=== PATIENT | male | born 1985 | race Caucasian/White ===

== ENCOUNTER 2016-06-30 13:37 | Emergency (ER) | payer MEDICARE, MEDICAID ==
[~2016-06-30] VITALS: Ht 172.7 cm; Wt 99.8 kg
[~2016-06-30 13:37] MED LIST: BACTRIM DS 8001 TA1 PO; BACTRIM DS 8001 TAB PO; BACTROBAN2% TP; CEPHALEXIN500 M1 PO; CEPHALEXIN500 MG PO; ETODOLAC200 MG PO; FLUOXETINE20 M2 PO; INDERAL 20MG. T20 MG PO; METHADONE HCL5 MG PO; PROPRANOLOL HCL10 MG PO; PROZAC40 MG PO; ROBAXIN-750750 MG PO; SEPTRA DS 800 M1 TAB PO; TORADOL10 MG PO
[2016-06-30 14:00] VITALS: BP 131/88
--- OUTSIDE RECORDS SUMMARY | 2016-07-01 22:53 | External Medical Summary Rpt ---
Author Author KWASI Bernal, KWASI Bernal Organization [employer] Address Unknown Phone Unavailable
--- OUTSIDE RECORDS SUMMARY | 2016-07-01 22:53 | External Medical Summary Rpt ---
Author Author , Organization [employer] Address Unknown Phone Unavailable Support Name Relationship Address Phone SURAJ Next Of Kin [address] [place] [phone] Purpose Continuity of Care Document - 09-13-2012 through 2016 Problems Code Diagnosis DOS Provider Status M54.2 CERVICALGIA R94.5 ABNORMAL RESULTS OF LIVER FUNCTION STUDIES S39.012A STRAIN OF MUSCLE, FASCIA AND TENDON OF LOWER BACK, INIT Allergies, Adverse Reactions, Alerts Type Allergy to substance Adverse Reaction to Substance Substance Reaction Severity NO KNOWN ALLERGIES Unknown Unknown Medications Na ND Rx Da Fi Fi Am Da Di Ph RX Ph St me C No te ll ll ou ys ag ar # ys at rm s nt no ma ic us Or Da si cy ia de te s n re d Sa 63 01 0 No li 80 -0 ne 70 9- Lo 10 20 ng Fl 07 14 er us 5 h Ac 10 ti ML ve Sy ri ng e KE 00 01 0 No TO 40 -0 RO 93 9- Lo LA 79 20 ng C 50 14 er 30 1 Ac MG ti /M ve L AL WV 00 01 0 No OM 64 -0 ET 11 9- Lo NAZARIO 49 20 ng ZI 53 14 er NE 5 Ac 25 ti ve MG /M L AM PU L SO 00 01 0 No DI 40 -0 UM 97 9- Lo 98 20 ng CH 42 14 er LO 0 RI Ac DE ti ve 0. 9% SO CORDELL TI ON WING 51 07 0 No LF 07 -1 AM 90 3- Lo ET 12 20 ng HO 82 13 er XA 0 ZO Ac LE ti -T ve MP DS TA BL ET Vital Signs 03-12-2013 05:57 Name Value Interpretat Reference Comment ion Range BP 79 mm[Hg] Diastolic BP Systolic 124 mm[Hg] Heart 85 /min Rate/Pulse O2% 93 % Respiratory 20 /min Rate 03-12-2013 03:58 Name Value Interpretat Reference Comment ion Range BP 83 mm[Hg] Diastolic BP Systolic 144 mm[Hg] Heart 62 /min Rate/Pulse O2% 95 % Respiratory 16 /min Rate 09-13-2012 21:43 Name Value Interpretat Reference Comment ion Range Body 98.3 [degF] Temperature BP 92 mm[Hg] Diastolic BP Systolic 131 mm[Hg] Heart 70 /min Rate/Pulse O2% 97 % Respiratory 20 /min Rate 09-13-2012 21:39 Name Value Interpretat Reference Comment ion Range Body 98.3 [degF] Temperature BP 92 mm[Hg] Diastolic BP Systolic 131 mm[Hg] Heart 70 /min Rate/Pulse O2% 97 % Respiratory 20 /min Rate Results Labs Lab Lab Date Result Refere Interp Status Commen Order Detail nces retati t Range on COMPREHENSIVE METABOLIC PANEL (03-12-2013 03:45) Glucose 163 74-106 complet 014 mg/dL ed Bld-mCn 03:45 c BUN 17 7-18 complet Bld-mCn 014 mg/dL ed c 03:45 Creat 1.2 0.8-1.3 complet SerPl-m 014 mg/dL ed Cnc 03:45 Creat 128 50-200 complet Cl 014 ML/MIN ed predict 03:45 ed SerPl C-G-vRa te GFR/BSA 72 Greater complet .pred 014 ML/MIN than ed SerPl 03:45 60 Schwart z-vRate Sodium 141 136-145 complet SerPl-s 014 mmoL/L ed Cnc 03:45 Potassi 4.2 3.5-5.1 complet um 014 mmoL/L ed SerPl-s 03:45 Cnc Chlorid 101 98-107 complet e 014 mmoL/L ed SerPl-s 03:45 Cnc CO2 30 21.0-32 complet SerPl-s 014 mmoL/L .0 ed Cnc 03:45 Calcium 9.3 8.5-10. complet 014 mg/dL 1 ed SerPl-m 03:45 Cnc Prot 8.0 6.4-8.2 complet SerPl-m 014 gm/dL ed Cnc 03:45 Albumin 4.0 3.4-5.0 complet 014 gm/dL ed SerPl-m 03:45 Cnc Globuli 4.0 1.3-3.2 complet n 014 gm/dL ed Ser-mCn 03:45 c Albumin 1.0 UNK 1.1-1.8 complet /Glob 014 ed SerPl-m 03:45 Rto Bilirub 0.4 0.2-1.0 complet 014 mg/dL ed SerPl-m 03:45 Cnc AST 25 U/L 15-37 complet SerPl-c 014 ed Cnc 03:45 ALT 57 U/L 30-65 complet SerPl-c 014 ed Cnc 03:45 ALP 127 U/L 50-136 complet SerPl-c 014 ed Cnc 03:45 Amylase SerPl-cCnc (03-12-2013 03:45) Amylase 24 U/L 25-115 complet 014 ed SerPl-c 03:45 Cnc LIPASE (03-12-2013 03:45) LIPASE 79 U/L 73-393 complet 014 ed 03:45 CBC with AUTO DIFF (03-12-2013 03:45) WBC # 03-12- 10.8 4.8-10. complet Bld 014 K/MM3 8 ed Auto 03:45 RBC # 4.70 4.6-6.2 complet Bld 014 M/mm3 ed Auto 03:45 Hgb 13.6 14.1-18 complet Bld-mCn 014 g/dL .0 ed c 03:45 Hct Fr 41.0 % 42.0-52 complet Bld 014 .0 ed 03:45 MCV RBC 87.3 fl 82.2-97 complet 014 .8 ed 03:45 MCH RBC 29.0 pg 27-31.2 complet Qn 014 ed Auto 03:45 MEAN 33.2 31.8-35 complet CORPUSC 014 g/dl .4 ed ULAR 03:45 HGB CONC RDW RBC 14.1 % 11.5-17 complet Auto 014 .5 ed 03:45 Platele 340 142-424 complet t Bld 014 K/mm3 ed Ql 03:45 Manual MEAN 6.9 fl 7.4-10. complet PLATELE 014 4 ed T 03:45 VOLUME Granulo 68.1 % 37.0-80 complet cytes 014 .0 ed Fr Bld 03:45 Auto LYMPH % 25.3 % 10-50 complet 014 ed 03:45 Monocyt 5.2 % 1.7-9.3 complet es Fr 014 ed Bld 03:45 Auto Eosinop 2 0.9 % 0.1-12. complet hil Fr 014 0 ed Bld 03:45 Auto Basophi 0.5 % 0.1-2.0 complet ls Fr 014 ed Bld 03:45 Auto Granulo 7.3 1.3-8.0 complet cytes # 014 K/mm3 ed Bld 03:45 Auto Lymphoc 2.7 0.7-4.5 complet ytes Fr 014 K/mm3 ed Bld 03:45 Auto Monocyt 0.6 0.1-1.0 complet es # 014 K/mm3 ed Bld 03:45 Auto Eosinop 0.1 0.0-0.4 complet hil # 014 K/mm3 ed Bld 03:45 Auto Basophi 2 0.1 0-0.2 complet ls # 014 K/MM3 ed Bld 03:45 Auto URINALYSIS/COMPLETE (03-12-2013 03:45) URINE YELLOW YELLOW complet COLOR 014 ed 03:45 URINE CLOUDY CLEAR complet APPEARA 014 ed NCE 03:45 URINE NEGATIV NEG complet GLUCOSE 014 E ed - 03:45 DIPSTIC K URINE NEGATIV NEG complet BILIRUB 014 E ed IN - 03:45 DIPSTIC K URINE NEGATIV NEG complet KETONE 014 E mg/dL ed 03:45 URINE 1.020 1.005-1 complet SPECIFI 014 UNK .030 ed C 03:45 GRAVITY URINE 3+ NEG complet BLOOD 014 ed 03:45 URINE 6.5 UNK 5.0-8.5 complet PH 014 ed 03:45 URINE NEGATIV NEG complet PROTEIN 014 E mg/dL ed - 03:45 DIPSTIC K URINE 0.2 NEG complet UROBILI 014 E.U./dL ed NOGEN - 03:45 DIPSTIC K URINE NEGATIV NEG complet NITRATE 014 E ed - 03:45 DIPSTIC K URINE NEGATIV NEG complet LEUK 014 E ed ESTERAS 03:45 E URINE TNTC 0 complet RBC 014 rbc/hpf ed 03:45 URINE OCC O complet WBC 014 wbc/hpf ed 03:45 URINE OCC OCC complet SQUAMOU 014 #/hpf ed S CELLS 03:45 URINE 2+ O complet BACTERI 014 ed A 03:45 Encounters Encounter Start End Date Code Location Performer Type Date Emergency KWADWO Weiss MD (ER) 4 03:27 4 05:58 [facility] Emergency KWADWO Weiss MD (ER) 3 20:14 3 21:44 [facility]
--- OUTSIDE RECORDS SUMMARY | 2016-07-01 22:53 | External Medical Summary Rpt ---
Author Author , Organization [employer] Address Unknown Phone Unavailable Support Name Relationship Address Phone SURAJ Next Of Kin [address] [place] [phone] Purpose Continuity of Care Document - 09-13-2012 [...] Ac MG ti /M ve L [place] 00 01 0 No OM 64 -0 [...] Weiss MD (ER) 4 03:27 4 05:58 [facility] KWADWO Weiss MD (ER) 3 20:14 3 21:44 [facility]
--- OUTSIDE RECORDS SUMMARY | 2016-07-01 22:53 | External Medical Summary Rpt ---
Author Author , Organization [employer] Address Unknown Phone Unavailable Purpose Continuity of Care Document - through 2016
--- OUTSIDE RECORDS SUMMARY | 2016-07-01 22:53 | External Medical Summary Rpt ---
Demographics Preferred Language Maori Marital Status Unknown Hoahaoism Affiliation Unknown Race Unknown Ethnic Group Unknown Author Author , Organization [employer] Address Unknown Phone Unavailable Purpose Continuity of Care Document - through 2016 Immunization No patient found.
--- OUTSIDE RECORDS SUMMARY | 2016-07-01 22:53 | External Medical Summary Rpt ---
Demographics Preferred Language Spanish Marital Status Unknown Samaritan Affiliation Unknown Race Unknown Ethnic Group Unknown Author Author , Organization [employer] Address Unknown Phone Unavailable Purpose Continuity of Care Document - through 2016 Immunization No patient found.
--- OUTSIDE RECORDS SUMMARY | 2016-07-01 22:54 | External Medical Summary Rpt ---
Demographics Preferred Language Welsh Marital Status Unknown Christianity Affiliation Unknown Race Unknown Ethnic Group Unknown Author Author , Organization [employer] Address Unknown Phone Unavailable Purpose Continuity of Care Document - through 2016 Immunization No patient found.
--- OUTSIDE RECORDS SUMMARY | 2016-07-01 22:54 | External Medical Summary Rpt ---
Demographics Preferred Language German Marital Status Unknown Confucianist Affiliation Unknown Race Unknown Ethnic Group Unknown Author Author , Organization [employer] Address Unknown Phone Unavailable Purpose Continuity of Care Document - through 2016 Immunization No patient found.
--- OUTSIDE RECORDS SUMMARY | 2016-07-01 22:54 | External Medical Summary Rpt ---
Author Author , Organization [employer] Address Unknown Phone Unavailable Support Name Relationship Address Phone SURAJ Next Of Kin [address] +[address] [place] [phone] Purpose Continuity of Care Document - 09-13-2012 [...] Ac MG ti /M ve L [place] 00 01 0 No OM 64 -0 [...] Weiss MD (ER) 4 03:27 4 05:58 [facility] Emergency KWADWO Weiss MD (ER) 3 20:14 3 21:44 [facility]
--- OUTSIDE RECORDS SUMMARY | 2016-07-01 22:54 | External Medical Summary Rpt ---
Author Author , Organization [employer] Address Unknown Phone Unavailable Support Name Relationship Address Phone SURAJ Next Of Kin [address] [place] [phone] Purpose Continuity of Care Document - 09-13-2012 [...] Ac MG ti /M ve L [place] 00 01 0 No OM 64 -0 [...] Weiss MD (ER) 4 03:27 4 05:58 [facility] Emergency KWADWO Weiss MD (ER) 3 20:14 3 21:44 [facility]
== END 2016-06-30 14:02 | disposition home or self-care (01) ==
LOC: UTC 13:37
DX: Z23 Encounter for immunization (principal)

== ENCOUNTER 2017-02-03 15:12 | Emergency (ER) | payer MEDICARE, MEDICAID ==
[~2017-02-03] VITALS: Ht 172.7 cm; Wt 102.1 kg
--- OUTSIDE RECORDS SUMMARY | 2017-02-03 15:40 | External Medical Summary Rpt | CCD ---
Author Author , KWASI VILLALPANDO Address Unknown Phone [email or web address] Support Name Relationship Address Phone SURAJ, Next Of Kin Eliecer LOPEZ +[address] [place] [phone] Purpose Continuity of Care Document - 09-13-2012 through 2016 Problems Code Diagnosis DOS Provider Status R74.8 Abnormal 09-12-2016 levels of other serum enzymes E78.5 Hyperlipide vale, unspecified F41.9 Anxiety disorder, unspecified F42.9 Obsessive-c ompulsive disorder, unspecified M48.06 Spinal stenosis, lumbar region M51.26 Other interverteb ral disc displacemen t, lumbar region M51.36 Other interverteb ral disc degeneratio n, lumbar region M54.2 CERVICALGIA R03.0 Elevated blood-press ure reading, without diagnosis of hypertensio n R73.09 Other abnormal glucose R94.5 ABNORMAL RESULTS OF LIVER FUNCTION STUDIES S39.012A STRAIN OF MUSCLE, FASCIA AND TENDON OF LOWER BACK, INIT Z00.00 Encounter for general adult medical examination without abnormal findings Z13.0 Encounter for screening for diseases of the blood and blood-formi ng organs and certain disorders involving the immune mechanism Z13.220 Encounter for screening for lipoid disorders Z13.228 Encounter for screening for other metabolic disorders Z13.29 Encounter for screening for other suspected endocrine disorder Allergies, Adverse Reactions, Alerts Type Allergy to [...] Ac MG ti /M ve L [place] 00 01 0 No OM 64 -0 [...] K/MM3 8 ed Auto 03:45 RBC # 03-12- 4.70 4.6-6.2 complet Bld 014 M/mm3 ed Auto 03:45 Hgb 03-12-2 13.6 14.1-18 complet Bld-mCn 014 g/dL .0 ed c 03:45 Hct Fr 2 41.0 % 42.0-52 complet Bld 014 .0 ed 03:45 MCV RBC 87.3 fl 82.2-97 complet 014 .8 ed 03:45 MCH RBC 29.0 pg 27-31.2 complet Qn 014 ed Auto 03:45 MEAN 33.2 31.8-35 complet CORPUSC 014 g/dl .4 ed ULAR 03:45 HGB CONC RDW RBC 14.1 % 11.5-17 complet Auto 014 .5 ed 03:45 Platele 03-12-2 340 142-424 complet t Bld 014 K/mm3 ed Ql 03:45 Manual MEAN 6.9 fl 7.4-10. complet PLATELE 014 4 ed T 03:45 VOLUME Granulo 03-12-2 68.1 % 37.0-80 complet cytes 014 .0 ed Fr Bld 03:45 Auto LYMPH % 03-12-2 25.3 % 10-50 complet 014 ed 03:45 Monocyt 03-12-2 5.2 % 1.7-9.3 complet es Fr 014 ed Bld 03:45 Auto Eosinop 09-2 0.9 % 0.1-12. complet hil Fr 014 0 ed Bld 03:45 Auto Basophi -09-2 0.5 % 0.1-2.0 complet ls Fr 014 ed Bld 03:45 Auto Granulo -09-2 7.3 1.3-8.0 complet cytes # 014 K/mm3 ed Bld 03:45 Auto Lymphoc 09-2 2.7 0.7-4.5 complet ytes Fr 014 K/mm3 ed Bld 03:45 Auto Monocyt -09-2 0.6 0.1-1.0 complet es # 014 K/mm3 ed Bld 03:45 Auto Eosinop -09-2 0.1 0.0-0.4 complet hil # 014 K/mm3 ed Bld 03:45 Auto Basophi 09-2 0.1 0-0.2 complet ls # 014 K/MM3 [...] Weiss MD (ER) 4 03:27 4 05:58 [facility] Emergency KWADWO Weiss MD (ER) 3 20:14 3 21:44 [facility]
--- OUTSIDE RECORDS SUMMARY | 2017-02-03 15:40 | External Medical Summary Rpt | CCD ---
Author Author KWASI Address Unknown Phone [email or web address] Purpose Continuity of Care Document - through 2016
--- OUTSIDE RECORDS SUMMARY | 2017-02-03 15:40 | External Medical Summary Rpt | CCD ---
Demographics Preferred Language Lithuanian Marital Status Unknown Zoroastrianism Affiliation Unknown Race Unknown Ethnic Group Unknown Author Author , KWASI VILLALPANDO Address Unknown Phone Immunization No patient found.
--- OUTSIDE RECORDS SUMMARY | 2017-02-03 15:40 | External Medical Summary Rpt | CCD ---
Demographics Preferred Language Yakut Marital Status Unknown Rastafari Affiliation Unknown Race Unknown Ethnic Group Unknown Author Author , KWASI VILLALPANDO Address Unknown Phone Immunization No patient found.
--- OUTSIDE RECORDS SUMMARY | 2017-02-03 15:40 | External Medical Summary Rpt ---
Author Author KWASI Bernal, [employer] Organization [employer] Address Unknown Phone Unavailable Results US RIGHT UPPER QUADRANT Observa Value Referen Units Interpr Notes Date tion ce etation Range \.br\CT No No No No Sep OCEDURE informa informa informa informa 2017 : RIGHT tion in tion in tion in tion in 10:16 UPPER source source source source AM QUADRAN data data data data T ULTRASO UND, 11/29/19 17 10:16 AM\.br\ \.br\IN DICATIO NS: Abdomin al pain.\. br\\.br \FINDIN GS: Right upper quadran t ultraso und.\.b r\\.br\ The gallbla dder is normal in appeara nce. There is no wall thicken ing,\.b r\stone s, or\.br\ pericho lecysti c fluid. Negativ e sonogra phic Rainey' s sign.\. br\\.br \There is probabl e diffuse hepatic steatos is. No focal hepatic lesions ..\.br\ There is\.br\ no intra or extrahe patic biliary dilatat ion.\.b r\\.br\ The common duct measure s 3 mm.\.br \\.br\L imited views of the pancrea s are unremar kable. The right kidney shows no\.br\ hydrone phrosis and measure s 11.1 cm in length. .\.br\\ .br\IMP RESSION :\.br\P robable hepatic steatos is. Right upper quadran t ultraso und is\.br\ otherwi se negativ e.\.br\ Glyco Observa Value Referen Units Interpr Notes Date ti ce etation Range Hemoglo 8.9 <=7.0 % High Referen Sep 20 ce 2016 A1c/Hem Interva 8:04 PM oglobin l for .total Hgb in A1c\.br Blood \\.br\H gb A1c Interpr etation \.br\-- ------- -- ------- ------- --\.br\ \.br\ < 6.0 Non-Teresa betic Range\. br\6.0 - 7.0 ADA Therape utic Target\ .br\ > 7.0 Action suggest ed Lipid Scr Observa Value Referen Units Interpr Notes Date tion ce etation Range Cholest 207 <=200 mg/dL High < 200 Sep 20 marjan 2017 [Percen 6:02 PM tile] Desirab le\.br\ 200 - 239 Borderl ine High\.b r\>= 240 High TRIGLYC 90 <=150 mg/dL No < 150 Sep 20 ERIDES. informa 2017 TOTAL tion in Normal\ 6:02 PM source .br\150 data - 199 Borderl ine High\.b r\200 - 499 High\.b r\ >= 500 Very High CHOLEST 44 >=40 mg/dL No > 60 Sep 20 EROLS.I informa 2017 N HDL tion in Optimal 6:02 PM source \.br\40 data - 60 Accepta ble\.br \ < 40 Low LDL 145 <=100 mg/dL High < 100 Sep 20 Calcula 2017 carmen 6:02 PM Optimal \.br\10 0 - 129 Near or above optimal \.br\13 0 - 159 Borderl ine High\.b r\160 - 189 High\.b r\ >= 190 Very High Auto Diff Observa Value Referen Units Interpr Notes Date tion ce etation Range Neutrop 58.6 No % No No Sep 20 hils informa informa informa 2016 [#/volu tion in tion in tion in 4:59 PM me] in source source source Blood data data data by Automat ed count Lymphoc 33.0 No % No No Sep 20 ytes informa informa informa 2016 [#/volu tion in tion in tion in 4:59 PM me] in source source source Blood data data data by Automat ed count Monocyt 6.2 No % No No Sep 20 es informa informa informa 2016 [#/volu tion in tion in tion in 4:59 PM me] in source source source Blood data data data by Automat ed count Eos 1.8 No % No No Sep 20 Percent informa informa informa 2017 tion in tion in tion in 4:59 PM source source source data data data Baso 0.4 No % No No Sep 20 Percent informa informa informa 2017 tion in tion in tion in 4:59 PM source source source data data data Neut# 3.9 1.8 - x10(3)/ No No Sep 20 7.7 mcL informa informa 2017 tion in tion in 4:59 PM source source data data Lymph# 2.2 0.6 - x10(3)/ No No Sep 20 4.8 mcL informa informa 2017 tion in tion in 4:59 PM source source data data [place]# 0.4 0.0 - x10(3)/ No No Sep 20 1.3 mcL informa informa 2017 tion in tion in 4:59 PM source source data data Eos# 0.1 0.0 - x10(3)/ No No Sep 20 0.5 mcL informa informa 2017 tion in tion in 4:59 PM source source data data Baso# 0.0 0.0 - x10(3)/ No No Sep 20 0.2 mcL informa informa 2017 tion in tion in 4:59 PM source source data data CBC Observa Value Referen Units Interpr Notes Date tion ce etation Range LEUKOCY 6.6 4.0 - x10(3)/ No No Sep 20 AMADOR 11.0 mcL informa informa 2017 tion in tion in 4:59 PM source source data data Erythro 4.66 4.30 - x10(6)/ No No Sep 20 cytes 5.81 mcL informa informa 2017 [#/volu tion in tion in 4:59 PM me] in source source Blood data data by Automat ed count Hemoglo 13.5 13.5 - gm/dL No No Sep 20 bin 17.1 informa informa 2017 [Mass/v tion in tion in 4:59 PM olume] source source in data data Blood Hematoc 41.5 38.9 - % No No Sep 20 rit 51.6 informa informa 2017 [Volume tion in tion in 4:59 PM source source Fractio data data n] of Blood by Automat ed count Erythro 89.1 82.5 - fL No No Sep 20 cyte 99.8 informa informa 2017 mean tion in tion in 4:59 PM corpusc source source ular data data volume [Entiti c volume] by Automat ed count Erythro 29.1 27.0 - pg No No Sep 20 cyte 34.3 informa informa 2016 mean tion in tion in 4:59 PM corpusc source source ular data data hemoglo bin [Entiti c mass] by Automat ed count Erythro 32.7 32.1 - gm/dL No No Sep 20 cyte 35.3 informa informa 2017 mean tion in tion in 4:59 PM corpusc source source ular data data hemoglo bin concent ration [Mass/v olume] by Automat ed count Erythro 13.3 11.5 - % No No Sep 20 cyte 15.0 informa informa 2016 distrib tion in tion in 4:59 PM ution source source width data data [Ratio] by Automat ed count Platele 294 144 - x10(3)/ No No Sep 20 ts 423 mcL informa informa 2016 [#/volu tion in tion in 4:59 PM me] in source source Blood data data by Automat ed count MPV 8.2 6.8 - fL No No Sep 20 10.8 informa informa 2017 tion in tion in 4:59 PM source source data data Lipid Scr Observa Value Referen Units Interpr Notes Date tion ce etation Range Cholest 250 <=200 mg/dL High < 200 Sep 11 marjan 2017 [Percen 6:33 PM tile] Desirab le\.br\ 200 - 239 Borderl ine High\.b r\>= 240 High TRIGLYC 164 <=150 mg/dL High < 150 Sep 11 ERIDES. 2017 TOTAL Normal\ 6:33 PM .br\150 - 199 Borderl ine High\.b r\200 - 499 High\.b r\ >= 500 Very High CHOLEST 48 >=40 mg/dL No > 60 Sep 11 EROLS.I informa 2017 N HDL tion in Optimal 6:33 PM source \.br\40 data - 60 Accepta ble\.br \ < 40 Low LDL 169 <=100 mg/dL High < 100 Sep 11 Calcula 2017 carmen 6:33 PM Optimal \.br\10 0 - 129 Near or above optimal \.br\13 0 - 159 Borderl ine High\.b r\160 - 189 High\.b r\ >= 190 Very High Free T4 Observa Value Referen Units Interpr Notes Date tion ce etation Range Thyroxi 1.11 0.80 - ng/dL No No Sep 11 ne (T4) 2.00 informa informa 2016 free tion in tion in 6:22 PM [Mass/v source source olume] data data in Serum or Plasma TSH Observa Value Referen Units Interpr Notes Date ti ce etation Range Thyrotr 3.090 0.270 - mcIU/mL No No Sep 11 opin 4.200 informa informa 2016 [Units/ tion in tion in 6:22 PM volume] source source in data data Serum or Plasma
--- OUTSIDE RECORDS SUMMARY | 2017-02-03 15:40 | External Medical Summary Rpt ---
Author Author KWASI Bernal, [employer] Organization [employer] Address Unknown Phone Unavailable Results US RIGHT UPPER QUADRANT Observa Value Referen Units Interpr Notes Date tion ce etation Range \.br\OR No No No No Sep OCEDURE informa [...] in 4:59 PM source source data data Walsh# 0.4 0.0 - x10(3)/ No No Sep [...]
--- OUTSIDE RECORDS SUMMARY | 2017-02-03 15:40 | External Medical Summary Rpt | CCD ---
Author Author KWASI Address Unknown Phone [email or web address] Purpose Continuity of Care Document - through 2016
--- OUTSIDE RECORDS SUMMARY | 2017-02-03 15:40 | External Medical Summary Rpt | CCD ---
Author Author , KWASI VILLALPANDO Address Unknown Phone [email or web address] Support Name Relationship Address Phone SURAJ, Next Of Kin Eliecer LOPEZ +[address] [phone] Purpose Continuity of Care Document - 09-13-2012 [...] Weiss MD (ER) 4 03:27 4 05:58 [facility] Emergency KWADWO Weiss MD (ER) 3 20:14 3 21:44 [facility]
[2017-02-03] MEDS ORDERED: AMOXICILLIN 50500 MG PO (16:03)
[2017-02-03] MEDS ORDERED: CLARITIN 10MG T10 MG PO (16:03)
[2017-02-03] MEDS ORDERED: FLONASE 50 MCG16 GM (16:03)
--- NOTE | 2017-02-03 16:03 | [facility]gent Treatment [facility] Report ---
History of Present Issue Date/Time Seen by Provider 02/03/17 1553 Visit Reason Pt arrived:Walked Presenting Problem:STATES HE IS HAVING PAIN AND TROUBLE HEARING IN HIS RT EAR Location if Accident: Onset of symptoms date/time:02/03/1705/18/899 or onset unknown for: Have you (or family members/close friends) recently traveled outside the [place]? N If Yes, where/when: Have you had exposure to infectious disease within the past month? TB? Other? Specify: Patient state that he has never had an ear infection before States that he began having pain in his ear a couple days ago State that today pain is worse and he can feel some pressure in that ear States that he feels like he is trying to listen under water ALLERGIES Coded Allergies: No Known Allergies (06/05/16) Home Medications Active Scripts Methocarbamol (Robaxin 750MG) 750 MG PO Q8HP PRN PAIN #30 TAB Prov: 12/26/14 Reported Medications Fluoxetine Hcl (Prozac) 40 MG PO DAILY Propranolol Hcl (Inderal 20MG. Tablet) 20 MG PO TID Cephalexin Monohydrate (Cephalexin 500 MG Tablet) 500 MG PO Q6H #30 History Medical History General CAD? No Angina: No RI: No Hypertension? Yes Hyperlipidemia? No CHF? No DVT? No PE? No COPD? No Asthma? No Anemia? No GERD? No Gastric ulcers? No GI Bleed? No Hernia? No Thyroid Problems? No Hypothyroidism? No CVA? No Seizures? No Diabetes? No Insulin Dependent: No Insulin Pump: No Home FSBS? No Renal Insuffiency? No UTI? No Stones? Yes BPH? No GB Disease: No Nephritic Syndrome? No Asplenia? No Hepatitis? No Sickle Cell Disease? No Arthritis? No Migraines? No Cataracts? No Glaucoma? No MRSA? Yes HIV? No TB? No Anxiety? No Depression? No Cancer? No More? No Immunization HX DT/Tetanus 5-10 Years Ago Surgical Hx Previous Surgery?Y BULLET FROM RIGHT ARM Family History Family HX Diabetes Yes Hypertension Yes Hyperlipidemia Yes Cancer Yes Social History Smoking Hx Smoker: Never Smoker Tobacco: No Alcohol Alcohol: No Review of Systems All Other Systems Reviewed and Negative ENT ear pain. Physical Exam Vital Signs Vital Signs Date Time Temp Pulse Resp B/P Pulse O2 O2 Flow FiO2 Ox Delivery Rate 02/03 1540 98.4 68 20 136/88 99 General Appearance normal appearance, WD/WN, no apparent distress Ear, Nose, Throat right ear, red, TM buldging Dull Respiratory Status Yes: trachea midline, chest symmetrical. No: respiratory distress. Lung Sounds bilateral: normal breath sounds, lungs clear. Cardiovascular normal exam, regular rate/rhythm, no peripheral edema Neurologic alert, normal exam, oriented x 3 Medical Decision Making LABS/Meds/Orders Pt receiving controlled substance in ED? No Departure Departure Time of Disposition 1600 Disposition DC Home or Self Care(routine) Clinical Impression Primary Impression: Otitis media Qualifiers: Otitis media type: unspecified Laterality: right Qualified Code: H66.91 - Otitis media, unspecified, right ear Condition STABLE Referrals Raquel ARROYO, GIANNA Schmidt (Family): 3 Days-Call Office if no improvement or worsening of symtpoms Mike ARROYO,Farhat Weber Patient Instructions DI for Ear Pain-Adult, DI for Otitis Media (Middle Ear Infection)-Child Additional Instructions Take medication as prescribed Follow up with family doctor Warm compresses may help with ear pain Sock with rice in it may help to lessen the pain of the ear REturn if needed Over the counter Motrin/Tylenol as needed for pain Discharge Counseling Counseled pt/family regarding diagnosis, medications/RX, home care, follow up needs Prescriptions Current Visit Scripts Amoxicillin Trihydrate (Amoxicillin 500MG) 500 MG PO TID #30 CAP Fluticasone Propionate (Flonase 50 Mcg Nasal [place]) 2 SPRAY NA DAILY #1 BOT Loratadine (Claritin 10MG) 10 MG PO DAILY #30 TAB at 1607
[2017-02-03 16:08] VITALS: BP 136/88
== END 2017-02-03 16:08 | disposition home or self-care (01) ==
LOC: UTC 15:12
DX: H66.91 Otitis media, unspecified, right ear (principal); I10 Essential (primary) hypertension